=== PATIENT | male | born 1965 | race Caucasian/White ===

== ENCOUNTER 2017-08-20 19:21 | Emergency (ER) | payer OTHER ==
[2017-08-20 19:25] VITALS: BP 132/81
--- NOTE | 2017-08-20 19:34 | ER Report ---
History and Physical Time Seen By MD: 19:34 Hx. of Stated Complaint: PATIENT REPORTS NAUSEA THAT STARTED AROUND 3 HOURS AGO HPI/ROS CHIEF COMPLAINT: Nausea HISTORY OF PRESENT ILLNESS: This is a 51-year-old male who presents to the emergency department via EMS for nausea. 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 The patient states they did give him something for his nausea, according to EMS he did get some Zofran. Patient states he is feeling better now, no vomiting. No diarrhea. No chest pain or shortness of breath. No visual changes no lightheadedness. Patient has no other complaints. No fevers. No dysuria. Patient's woodlike to ambulate to see how he does and does not feel that he needs anything else at this time. REVIEW OF SYSTEMS: Respiratory: No cough, no dyspnea. Cardiovascular: No chest pain, no palpitations. Gastrointestinal: As above. Musculoskeletal: No back pain. Allergies: Coded Allergies: No Known Drug Allergies (Unverified , 08/20/17) Home Meds Unable to Obtain Active Prescriptions or Reported Meds Past Medical/Surgical History Patient has no significant past medical or surgical history. Reviewed Nurses Notes: Yes Constitutional Vital Sign - Last 24 Hours 08/20/17 08/20/17 19:25 19:25 Temp 98.4 Pulse 84 Resp 20 B/P (MAP) 132/81 132/81 (98) Pulse Ox 90 O2 Delivery Room Air Physical Exam General Appearance: The patient is alert, has no immediate need for airway protection and no current signs of toxicity. Eyes: Pupils equal and round no injection. Respiratory: Chest is non tender, lungs are clear to auscultation. Cardiac: regular rate and rhythm, no murmurs, clicks or rubs. Gastrointestinal: Abdomen is soft and non tender, no masses, hyperactive bowel sounds. Musculoskeletal: Neck: Neck is supple and non tender. Extremities have full range of motion and are non tender. Skin: No rashes or lesions. DIFFERENTIAL DIAGNOSIS: After history and physical exam differential diagnosis was considered for nausea and vomiting including but not limited to gastroenteritis, gastritis, appendicitis, and medication side effect. Medical Decision Making ED Course/Re-evaluation Clinical Indication for ER IV: Hydration, IV Access ED Course The patient was admitted to room via EMS. A history and physical were obtained. Differential diagnoses were considered. An IV was started via EMS, IV fluids were given via EMS and 4 mg IV Zofran given via EMS. Upon arrival patient was complaint free, no nausea, no chest pain, shortness of breath, aches, chills, fevers or headaches. I did talk to the patient at length regarding his symptoms he states that he was sitting at his desk working on the computer and developed some nausea. No other symptoms. I did tell the patient that I do not have any clear explanation as to why he had nausea I did however tell him that I do consider cardiac disease in my Differential with nausea, patient states he does not have a history of cardiac disease. Patient declined a further workup as symptoms have resolved. The patient was ambulated to ensure that he was feeling okay, patient did well. Patient was discharged home. He was instructed to follow -up with his primary care provider or return to emergency department for any other concerns or worsening symptoms. Decision to Disposition Date: Aug 20, 2017 Decision to Disposition Time: 20:09 Depart Departure Latest Vital Signs Vital Signs Date Time Temp Pulse Resp B/P (MAP) Pulse Ox O2 Delivery O2 Flow Rate FiO2 08/20/17 19:25 132/81 (98) 08/20/17 19:25 98.4 84 20 90 Room Air Impression: Primary Impression: Nausea Condition: Improved Disposition: HOME OR SELF-CARE New Scripts Unable to Obtain Active Prescriptions or Reported Meds Patient Instructions: Acute Nausea and Vomiting (ED) Additional Instructions: Drink plenty of water, especially with the heat. Get plenty of rest. Follow-up with your primary care provider for any other concerns. Return to the emergency department for worsening symptoms. HUMBERTO RUIZ [employer]IST-[employer] Aug 20, 2017 19:34
== END 2017-08-20 20:23 | disposition home or self-care (01) ==
LOC: ER 19:27
DX: R11.0 Nausea (principal)
CPT/HCPCS: 99281